=== PATIENT | female | born 1995 | race African-American/Black ===

== ENCOUNTER 2021-08-08 18:18 | Emergency (ER) | payer OTHER, SELFPAY ==
--- NOTE | 2021-08-08 18:45 | ED.NAVMDI ---
HPI - Nausea/Vomiting/Diarrhea General Chief complaint: Nausea/Vomiting/Diarrhea Stated complaint: Vomiting Time Seen by Provider: 08/08/21 18:45 Source: patient and RN notes reviewed History of Present Illness HPI Narrative: Patient is a 25-year-old female who presents the urgent care with complaints of a loss of taste, smell, body aches, chills and vomiting. Patient states her symptoms started and she started to feel better with no vomiting today. However patient still is complaining of chills and body aches. Patient states no one in her home has been vaccinated. Denies any known exposures. Patient denies of any fevers. Denies of diarrhea or abdominal pain. Patient has been taking NyQuil and DayQuil for her symptoms. No other acute complaints. No acute distress noted. Patient with plan of care Some parts of this dictation were generated by voice recognition software and may contain typographical and/or grammatical inaccuracies. Related Data Allergies Allergy/AdvReac Type Severity Reaction Status Date / Time PENICILLIN Allergy Unknown Rash Uncoded 08/26/16 14:00 Review of Systems Review of Systems: CONSTITUTIONAL: Reports of chills EYES: Denies visual changes, redness, or discharge. ENT: Denies rhinorrhea, congestion, sore throat, or otalgia. CARDIOVASCULAR: Denies chest pain, palpitations, or edema. RESPIRATORY: Denies cough or dyspnea. GASTROINTESTINAL: Reports of resolved vomiting without diarrhea, abdominal pain or nausea GENITOURINARY: Denies dysuria or hematuria. SKIN: Denies rash or itching. MUSCULOSKELETAL: Denies back pain, joint pain. Reports body aches NEUROLOGIC: Denies headache, numbness, or weakness. All other systems reviewed are negative, except as documented in HPI. PMFSH Comments At the time of my signature, I reviewed and agree with the nursing past medical, surgical, social, and family history. There is no relevant family history pertinent to the patient complaint. Exam Narrative: GENERAL: This is a well-nourished, well-developed patient, in no apparent distress. HEAD: normocephalic, atraumatic. EYES: PERRL. Sclera clear/white. Vision is grossly intact. EARS: External ears normal, auditory canals clear and without drainage, TMs normal without perforation. Hearing grossly intact. NOSE: External nose normal with no obvious nasal discharge, nares without redness, no rhinorrhea. THROAT: Mucous membranes moist, posterior pharynx clear. Moderate postnasal drainage NECK: Neck supple CARDIOVASCULAR: Regular rate and rhythm without murmurs, gallops, or rubs. RESPIRATORY: Clear to auscultation. Breath sounds equal bilaterally. No wheezes, rales, or rhonchi. GASTROINTESTINAL: Abdomen soft, non-tender, nondistended. Bowel sounds are hyperactive. SKIN: warm, intact with no suspicious lesions or rash, good texture and turgor. NEURO: awake, alert, and oriented to person, place and time. There were no obvious focal neurologic abnormalities. EXTREMITIES: No clubbing, cyanosis, or edema. Course Course Level of Care: Express Care Visit Vital Signs Vital signs: Vital Signs Temperature 98.8 F 08/08/21 18:50 Pulse Rate 99 08/08/21 18:50 Respiratory Rate 16 08/08/21 18:50 Blood Pressure 131/94 H 08/08/21 18:50 Pulse Oximetry 100 08/08/21 18:50 Temperature 98.8 F 08/08/21 18:50 Pulse Rate 99 08/08/21 18:50 Respiratory Rate 16 08/08/21 18:50 Blood Pressure 131/94 H 08/08/21 18:50 Pulse Oximetry 100 08/08/21 18:50 Reviewed-patient is informed that they may have pre-hypertension or hypertension based on a blood pressure reading in the department. I recommend the patient call the primary care provider listed on their discharge instructions or a physician of their choice this week to arrange follow-up for further evaluation of possible pre-hypertension or hypertension. MDM - Nausea/Vomiting/Diarrhea MDM Narrative Medical decision making narrative: Reviewed lab results with bobbi
[2021-08-08 18:50] VITALS: BP 131/94; PULSE 99; RESP 16; TEMP 37.1; O2SAT 100
== END 2021-08-08 19:41 | disposition home or self-care (01) ==
PROVIDERS: Emergency Provider Nurse Practitioner Family; PCP Internal Medicine
DX: U07.1 COVID-19 (principal)
CPT/HCPCS: 87426; 87804; 99203; C9803; G0463